=== PATIENT | male | born 1965 | race Caucasian/White ===

== ENCOUNTER 2017-10-25 15:51 | Observation (INO) | payer OTHER ==
[~2017-10-25] VITALS: Ht 177.8 cm; Wt 89.4 kg
[2017-10-25 16:25] LABS: ABSOLUTE BASOPHIL COUNT 0 /CUMM (0.0-0.2); ABSOLUTE EOSINOPHIL COUNT 0.1 /CUMM (0.0-0.7); ABSOLUTE GRANULOCYTE CT 4.6 /CUMM (1.4-6.5); ABSOLUTE LYMPH COUNT 1.7 /CUMM (1.2-3.4); ABSOLUTE MONOCYTE COUNT 0.5 /CUMM (0.10-0.60); BASOPHIL % 0.7 % (0.0-2.0); EOSINOPHIL % 1.4 % (0-5); GRANULOCYTE % 66.2 % (42.2-75.2); HEMATOCRIT 47.2 % (42-52); MEAN CORPUSCULAR HGB CONC 33.5 G/DL (33.0-37.0); MEAN CORPUSCULAR VOLUME 86.7 FL (80.0-94.0); MEAN PLATELET VOLUME 7.6 FL (7.4-10.4); PLATELET COUNT 247 /CUMM (130-400); RBC DISTRIBUTION WIDTH 13.6 % (11.5-14.5); RED BLOOD CELL CT 5.45 /CUMM (4.70-6.10)
--- NOTE | 2017-10-25 17:26 | RADIOLOGY REPORT ---
EXAMINATION: XR CHEST CLINICAL INFORMATION: Chest pain COMPARISON: None TECHNIQUE: 2 views of the chest were obtained. FINDINGS: No significant abnormality is noted involving the heart, lungs, mediastinum, bony thorax or soft tissues. IMPRESSION: Unremarkable examination.
[2017-10-25] MEDS ORDERED: HYDROCODON-ACE1 EAC6 PO (17:40)
[2017-10-25] MEDS ORDERED: CYCLOBENZAPRINE10 M1 PO (17:40)
[2017-10-25] MEDS ORDERED: GRALISE600 M2 PO (17:41)
--- NOTE | 2017-10-25 17:55 | ED CARDIAC/CP/PALPITATIONS ---
History of Present Illness General Chief Complaint: Chest Pain Stated Complaint: CP Source: patient Exam Limitations: no limitations Vital Signs & Intake/Output Vital Signs & Intake/Output Vital Signs Date Time Temp Pulse Resp B/P B/P Pulse O2 O2 Flow FiO2 Mean Ox Delivery Rate 10/25 1818 98.0 78 18 135/89 98 Room Air 10/25 1703 98 Room Air 10/25 1613 96.5 72 18 148/85 97 Room Air Allergies Coded Allergies: peanut (Severe, ANAPHYLAXIS 10/25/17) Triage Note: PT TO ER C/C INTERMITTENT CHEST PAIN AND EXERTIONAL SOB X 2 WEEKS. PAIN RELIEVED AT REST. FAMILY HX OF NV AT YOUNG AGE (MOTHER @ 47). DENIES KNOWN MEDICAL HX OF HTN, HYPERLIPIDEMIA Triage Nurses Notes Reviewed? yes Onset: Last week Duration: day(s): Timing: multiple episodes today Quality/Severity: mild, dull, pressure Location: central Radiation: neck, arms Activities at Onset: activity Modifying Factors: Worsens With: exercise. HPI: PATIENT IS A 52 Y/O MALE, PMH OF MIGRAINES, CHRONIC MUSCLE PAIN AND CHRONIC NERVE PAIN PRESENT FOR A ONE WEEK HISTORY OF CHEST PRESSURE AND SOB. PATIENT STATES HE HAS BEEN GETTING MORE OUT OF BREATH RECENTLY WITH MINOR EXERCISE AND NOW HAS A PRESSURE SENSATION OVER HIS CHEST WITH PAIN RADIATION TO HIS LEFT ARM. HE RATES THE PAIN AT A 5/10 AND IT COMES AND GOES THROUGHOUT THE DAY. HE REPORTS MULTIPLE EPISODES OF PALPITATIONS AND CAROTID PULSATIONS. HE ADDITIONALY REPORTS BILATERAL OCCIPTAL HEADACHE THAT IS DIFFERENT FROM HIS NORMAL MIGRAINES. HE DENIES, FEVER, CHILLS, N/V/D, DIZZINESS, ABDOMINAL PAIN, AND DYSURIA.the shortness of breath is worse with exertion and better with rest. (Isreal ALAS,Jesus) Reconcile Medications Aspirin (Aspirin*) 81 MG TAB.CHEW 1 TAB PO DAILY cardiac Atorvastatin Calcium 40 MG TABLET 1 TAB PO DAILY cholesterol Clopidogrel Bisulfate (Clopidogrel) 75 MG TABLET 1 TAB PO DAILY cardiac Cyclobenzaprine HCl 10 MG TABLET 1 TAB PO BID MUSCLE SPASMS (Reported) Gabapentin (Gralise) 600 MG TAB.ER.24H 1 TAB PO BID NEUROPATHY (Reported) Hydrocodone/Acetaminophen (Hydrocodon-Acetaminoph 7.5-300) 7.5 MG-300 MG TABLET 1 TAB PO BID PRN PAIN (Reported) Metoprolol Tartrate 25 MG TABLET 1 TAB PO BID cardiac (Claire HEARD,Jermaine Stacy) Past History Travel History Traveled to [place] past 21 day No Medical History Any Pertinent Medical History? see below for history Neurological: peripheral neuropathy, HEADACHES Surgical History Surgical History: none Psychosocial History What is your primary language [place] Tobacco Use: Quit >30 days ago Family History Comment: MOTHER WITH MULTIPLE NV's STARTING IN MID FORTIES. FATHER- BLADDER AND COLON CANCER Mother has history of hypertrophic cardiomyopathy Hx Contributory? Yes (Jesus Kwong) Review of Systems Review of Systems Constitutional: Reports: no symptoms. EENTM: Reports: no symptoms. Respiratory: Reports: no symptoms. Cardiovascular: Reports: see HPI. GI: Reports: no symptoms. Genitourinary: Reports: no symptoms. Musculoskeletal: Reports: see HPI. Skin: Reports: no symptoms. Neurological/Psychological: Reports: no symptoms. Hematologic/Endocrine: Reports: no symptoms. Immunologic/Allergic: Reports: no symptoms. All Other Systems: Reviewed and Negative (Jesus Kwong) Physical Exam Physical Exam General Appearance: well developed/nourished, no apparent distress, alert, awake , comfortable Head: atraumatic, normal appearance Eyes: Bilateral: normal appearance, EOMI. Ears, Nose, Throat: normal ENT inspection Neck: normal inspection, supple Respiratory: normal breath sounds, chest non-tender, no respiratory distress, lungs clear Cardiovascular: regular rate/rhythm Peripheral Pulses: 2+ radial (R), 2+ radial (L), 2+ tibialis posterior (R), 2+ tibialis posterior ( L), 2+ dorsalis pedis (R), 2+ dorsalis pedis (L) Gastrointestinal: normal bowel sounds, soft, non-tender, no organomegaly Extremities: normal inspection, no edema Skin: intact, normal color, warm/dry Core Measures ACS in differential dx? Yes CVA/TIA Diagnosis No Sepsis Present: No Sepsis Focused Exam Completed? No (Jesus Kwong) Progress Differential Diagnosis: AMI, aortic dissection, cholecystitis, musculoskeletal pain, myocarditis, pancreatitis, pericarditis, pneumonia, pneumothorax, pulmonary embolism, PUD/GERD, respiratory failure, sepsis, unstable angina Plan of Care: Orders Procedure Date/time Status Heart Healthy Diet 10/26 B Active CBC WITHOUT DIFFERENTIAL 10/26 599 Active BASIC ELECTROLYTES PLUS BUN&CR 10/26 599 Active TROPONIN LEVEL 10/26 0400 Active EKG 10/26 0400 Active Regular Diet 10/25 D Complete TROPONIN LEVEL 10/25 2200 Active EKG 10/25 2200 Active THYROID STIMULATING HORMONE 10/25 1841 Active LIPID PANEL 10/25 1841 Active GLYCOSYLATED HGB 10/25 1841 Active FREE T4 10/25 1841 Active Pathway - chart 10/25 1837 Active Pathway - chart 10/25 1835 Active House Staff 10/25 1835 Active Patient Data 10/25 1835 Active Code Status 10/25 1835 Active Patient Data 10/25 1831 Active Misc Message 10/25 1828 Active ED Holding Orders 10/25 1828 Active Vital Signs 10/25 1828 Active Code Status 10/[address] in observation 10/25 1826 Active Intake & Output 10/25 1702 Active Add-on Test (ER Only) 10/25 1635 Active Telemetry/Voip Technician 10/25 1635 Active D-DIMER 10/25 1610 Complete TROPONIN LEVEL 10/25 1609 Complete MAGNESIUM 10/25 1609 Complete COMPREHENSIVE METABOLIC PANEL 10/25 1609 Complete CBC WITHOUT DIFFERENTIAL 10/25 1609 Complete EKG 10/25 1551 Active VTE Mechanical Prophylaxis 10/25 UNK Active Vital Signs 10/25 UNK Active Telemetry/Voip Technician 10/25 UNK Active ECHOCARDIOGRAM 10/25 UNK Active Current Medications Sig/Lou Start time Last Medication Dose Stop Time Status Admin Aspirin 81 MG DAILY 10/26 1000 UNVr (Aspirin) Clopidogrel Bisulfate 75 MG DAILY 10/26 1000 UNVr (Plavix) Enoxaparin Sodium 40 MG DAILY 10/26 1000 CAN (Lovenox) Cyclobenzaprine HCl 10 MG BID 10/25 2199 AC (Flexeril 10MG Tab) Gabapentin 600 MG BID 10/25 2199 AC (Neurontin) Metoprolol Tartrate 12.5 MG BID 10/25 2199 UNVr (Lopressor) Aspirin 325 MG ONCE ONE 10/25 1914 UNVr (Aspirin) 10/25 1915 Atorvastatin Calcium 80 MG 1700 10/25 1914 UNVr (Lipitor) Clopidogrel Bisulfate 300 MG ONCE ONE 10/25 1914 UNVr (Plavix) 10/25 1915 Heparin Sodium 25,000 UNIT Q24H 10/25 1914 AC (Porcine) (Heparin) Sodium Chloride 500 ML Nitroglycerin 1 GM Q6 01/07 1911 UNVr (Nitro-Bid) Acetaminophen 650 MG Q6P PRN 10/25 1844 AC (Tylenol) Hydrocodone Bitart/ 1 TAB Q8P PRN 10/25 184 AC Acetaminophen (Vicodin) Ibuprofen 600 MG Q6P PRN 10/25 184 AC (Motrin) Laboratory Tests 10/25/17 1610: Anion Gap 13, Estimated GFR > 60, BUN/Creatinine Ratio 15.0, Glucose 96, Calcium 9.5, Magnesium 2.2, Total Bilirubin 0.5, AST 36, ALT 68, Alkaline Phosphatase 71 , Troponin I < 0.01, Total Protein 7.5, Albumin 4.6, Globulin 2.9, Albumin/ Globulin Ratio 1.6, D-Dimer High Sensitivty < 200, CBC w Diff NO MAN DIFF REQ, RBC 5.45, MCV 86.7, MCH 29.0, RDW 13.6, MPV 7.6, Gran % 66.2, Lymphocytes % 25.1 , Monocytes % 6.6, Eosinophils % 1.4, Basophils % 0.7, Absolute Granulocytes 4.6 , Absolute Lymphocytes 1.7, Absolute Monocytes 0.5, Absolute Eosinophils 0.1, Absolute Basophils 0, PUBS MCHC 33.5 Diagnostic Imaging: Viewed by Me: Radiology Read. Discussed w/RAD: Radiology Read. Radiology Impression: PATIENT: JACOB RICHEY PRESENT AGE: 52 PATIENT ACCOUNT NO: [id number] : 64 LOCATION: [facility] ORDERING PHYSICIAN: Jesus ALAS SERVICE DATE: 10/25/17 EXAM TYPE : RAD - XRY-CHEST XRAY, TWO VIEWS EXAMINATION: XR CHEST CLINICAL INFORMATION: Chest pain COMPARISON: None TECHNIQUE: 2 views of the chest were obtained. FINDINGS: No significant abnormality is noted involving the heart, lungs, mediastinum, bony thorax or soft tissues. IMPRESSION: Unremarkable examination. DICTATED BY: Wyatt Robertson MD DATE/TIME DICTATED:10/25/171721 LIFE CARE PLANNER :BC DATE/TIME TRANSCRIBED:10/25/171721 CONFIDENTIAL, DO NOT COPY WITHOUT APPROPRIATE AUTHORIZATION. <Electronically signed in Other Vendor System> SIGNED BY: Wyatt Robertson MD 10/25/171725 Initial ED EKG: normal sinus rhythm, rate (72), borderline T-wave abnormalities (Jesus Kwong) Departure Departure Disposition: STILL A PATIENT Condition: Stable Clinical Impression Primary Impression: Unstable angina Referrals: Patient Has No Primary Care Dr (PCP/Family) Departure Forms: Customer Survey General Discharge Information Observation Note Spoke With: Ailyn HEARD PHD,Piyush Townsend Physician Advisor Notified: JERMAINE KIRAN DO Place Patient In: Non-ED OBS Care Area Rationale for Observation: My rational for observation is as follows . Patient will require cardiac telemetry. Cardiac consultation. Serial troponins. Patient will require echocardiogram. Nonstress test. High risk. Medically not safe for discharge at this time. (Jesus Kwong) Departure Prescriptions: Current Visit Scripts Clopidogrel Bisulfate (Clopidogrel) 1 TAB PO DAILY #30 TAB Aspirin (Aspirin*) 1 TAB PO DAILY #30 TAB Metoprolol Tartrate 1 TAB PO BID #60 TAB Atorvastatin Calcium 1 TAB PO DAILY #30 TAB PA/SHERIFF SERGEANT Co-Sign Statement Statement: ED Attending supervision documentation- [X] I saw and evaluated the patient. I have also reviewed all the pertinent lab results and diagnostic results. I agree with the findings and the plan of care as documented in the PA's/SHERIFF SERGEANT's documentation. Patient presents for evaluation of worsening dyspnea, physical examination is unremarkable. [] I have reviewed the ED Record and agree with the PA's/SHERIFF SERGEANT's documentation. [] Additions or exceptions (if any) to the PAs/SHERIFF SERGEANT's note and plan are summarized below: [] (Claire HEARD,Jermaine Stacy) Critical Care Note Critical Care Note Critical Care Time: non-applicable (Jesus Kwong)
--- NOTE | 2017-10-25 18:59 | History & Physical ---
Nemesio HEARDKacy 10/25/17 1843: General Information and [facility] MD Statement: I have seen and personally examined JACOB RICHEY and documented this H&P. The patient is a 52 year old M who presented with a patient stated chief complaint of chest pain on exertion and shortness of breath Source of Information: patient Exam Limitations: no limitations History of Present Illness: Patient is a 52-year-old male with a past medical history significant for migraines, chronic muscle pain, nerve pain, past smoker that comes to see us for a 2 week history of intermittent and exertional shortness of breath and chest pain. The pain is located in the left chest and radiates to the neck and left arm. The patient denies any pain at rest. The patient notes the pain is more like a tightness in the left arm but the pain with a rating of 5/10 in the chest. He notes that happens on exertion. Sometimes it happens his shortness of breath and sometimes shortness of breath happens without the chest pain. The patient also admits to palpitations especially at night with carotid pulsations on the left side of his neck that wake him up out of sleep. He also notes an excruciating bilateral occipital headache 2 weeks ago with a few headaches since that he's taken Motrin as well as his prescribed Vicodin, Flexeril for. The patient denies any focal neuro deficits, loss of consciousness, seizure activity , aura, chills, nausea vomiting diarrhea, fever, chills, abdominal pain, dysuria. The patient does admit to some fleeting dizziness upon waking up one day. The patient has a family history of hypertrophic cardiomyopathy with his mother having several myocardial infarctions before the age of 47. Several of the patient's brothers and sisters have been tested for hypertrophic cardiomyopathy and has been negative. 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 The patient does not see a senior tax manager and sees a neurologist at [facility] neurology as migraines. He takes Flexeril, Vicodin, Motrin, and gabapentin for his muscle/nerve pains. Patient is a previous smoker but quit 27 years ago, no drug use, rare alcohol use. The patient is allergic to peanuts. Allergies/Medications Allergies: Coded Allergies: peanut (Severe, ANAPHYLAXIS 10/25/17) Home Med list Cyclobenzaprine HCl 10 MG TABLET 1 TAB PO BID MUSCLE SPASMS (Reported) Gabapentin (Gralise) 600 MG TAB.ER.24H 1 TAB PO BID NEUROPATHY (Reported) Hydrocodone/Acetaminophen (Hydrocodon-Acetaminoph 7.5-300) 7.5 MG-300 MG TABLET 1 TAB PO BID PRN PAIN (Reported) Compliance With Home Meds: GOOD Past History Travel History Traveled to [place] past 21 day No Medical History Neurological: peripheral neuropathy, HEADACHES Surgical History Surgical History: none Past Family/Social History Family History Relations & Conditions if any MOTHER Relation not specified for: Hypertrophic cardiomyopathy Review of Systems Review of Systems Constitutional: Reports: no symptoms. Cardiovascular: Reports: chest pain, palpitations. Respiratory: Reports: short of breath. GI: Reports: no symptoms. Genitourinary: Denies: no symptoms. Musculoskeletal: Reports: muscle pain. Neurological/Psychological: Reports: headache. Exam & Diagnostic Data Last 24 Hrs of Vital Signs/I&O Vital Signs Date Time Temp Pulse Resp B/P B/P Pulse O2 O2 Flow FiO2 Mean Ox Delivery Rate 10/25 1818 98.0 78 18 135/89 98 Room Air 10/25 1703 98 Room Air 10/25 1613 96.5 72 18 148/85 97 Room Air Physical Exam General Appearance Alert, Oriented X3, Cooperative, No Acute Distress HEENT Atraumatic, PERRLA, EOMI Cardiovascular Regular Rate, Normal S1, Normal S2, No Murmurs Lungs Clear to Auscultation, Normal Air Movement Abdomen Normal Bowel Sounds, Soft, No Tenderness Neurological Normal Speech Extremities No Clubbing, No Cyanosis, No Edema, Normal Pulses Vascular Normal Pulses, Pulses Symmetrical Last 24 Hrs of Labs/[place]: Laboratory Tests 10/25/17 1610: Anion Gap 13, Estimated GFR > 60, BUN/Creatinine Ratio 15.0, Glucose 96, Calcium 9.5, Magnesium 2.2, Total Bilirubin 0.5, AST 36, ALT 68, Alkaline Phosphatase 71 , Troponin I < 0.01, Total Protein 7.5, Albumin 4.6, Globulin 2.9, Albumin/ Globulin Ratio 1.6, D-Dimer High Sensitivty < 200, CBC w Diff NO MAN DIFF REQ, RBC 5.45, MCV 86.7, MCH 29.0, RDW 13.6, MPV 7.6, Gran % 66.2, Lymphocytes % 25.1 , Monocytes % 6.6, Eosinophils % 1.4, Basophils % 0.7, Absolute Granulocytes 4.6 , Absolute Lymphocytes 1.7, Absolute Monocytes 0.5, Absolute Eosinophils 0.1, Absolute Basophils 0, PUBS MCHC 33.5 Assessment/Plan Assessment: Patient is a 52-year-old male with a past medical history significant for migraines, chronic muscle pain, nerve pain, past smoker that comes to see us for a 2 week history of intermittent and exertional shortness of breath and chest pain, and excruciating bilateral occipital headache 2 weeks ago. He has a strong family history of heart problems with his mother having hypertrophic cardiomyopathy and several myocardial infarctions before the age of 47. The patient states that his chest pain radiates to his left arm and he also experiences palpitations and "carotid pulsations" that have woken him up during the night. The patient has not experienced these symptoms before. In the emergency department, the patient's vitals were temperature 96.5, heart rate 72, respirations 18, blood pressure 148/85. WBCs were normal at 7, hemoglobin 15.8, sodium 143, potassium 4.2, creatinine 0.8, d-dimer normal, troponins negative, chest x-ray negative for any acute process. Physical exam was normal. EKG showed normal sinus rhythm at a rate of 72 with QTC of 408. At the time of interview the patient was not experiencing any shortness of breath or chest pain. We will observe the patient in telemetry for evaluation and treatment of presumed ACS. Plan Serial troponins and EKGs- 10 PM and 4 AM Nitroglycerin 1 inch paste every 6 hours as needed for chest pain Aspirin 324 Heparin drip Plavix 300 mg today and 75 mg per day thereafter Metoprolol 12.5 for heart rate control Echocardiogram ordered for tomorrow Atorvastatin 80 mg daily Oxygen as needed We have started all of the patient's outpatient medications including Flexeril, Vicodin, Motrin, gabapentin As Ranked By This Provider Problem List: 1. Chest pain 2. Headache Core Measures/Misc (07/05) Acute Coronary Syndrome ACS Diagnosis: Yes Congestive Heart Failure Congestive Heart Failure Diagnosis No Cerebrovascular Accident CVA/TIA Diagnosis: No VTE (View Protocol) VTE Risk Factors Age>40 No Mechanical VTE Prophylaxis d/t N/A MechProphylax Ordered No VTE Pharm Prophylaxis d/t NA PharmProphylax ordered Sepsis (View protocol) Sepsis Present: No Annapureddy,Giovanny 10/25/17 1859: Resident Review Statement Resident Statement: examined this patient, discussed with recruitment internship, agreed with recruitment internship, discussed with family, reviewed EMR data (avail), discussed with nursing , discussed with case mgmt, reviewed images, amended to note Other Findings: This is a 52-year-old male with past medical history significant for migraine, muscle spasms, neuropathy, remote history of smoking, family history of heart attack mother when she was 47, presented for evaluation of chest pain. Patient reports on and off chest pains for past 2 weeks. Patient reports chest pain, left-sided, radiating to arm, pressured sensation, decreased with rest, increased with exertion. Associated with shortness of breath, not associated with any kind of activity. His chest pain has been on and off for past 2 weeks. No prior history of chest pain. Denies any palpitations, sweating, diaphoresis , nausea, vomiting. Denies any history of hypertension, hyperlipidemia. However has remote history of smoking 27 years back. Patient has strong family history of myocardial infarction, mother was diagnosed with IA when she was 45. All his family members and siblings were tested for hypertrophic cardiomyopathy. He is supposed to get his testing soon. Review of systems was negative except for above. Denies any smoking, alcohol abuse, illicit drug abuse. He follows up with neurologist at [facility] for migraines. Vitals afebrile, heart rate 72, respiratory rate 18, blood pressure 148/85, saturating at 97 on room air. Physical exam findings HEENT within normal limits , no JVD, S1-S2 normal, no murmurs, bilateral lung air entry good. Abdomen soft nontender nondistended, lower extremity no edema no cyanosis no clubbing. Neurologic exam intact. Labs C BC, BEP within normal limits Troponin normal D-dimer less than 200 Chest x-ray normal EKG rate 72, sinus rhythm, regular, no ST-T wave changes suggestive of ischemia. Assessment and plan 1. Chest pain Patient presented with chest pain suggestive of stable angina. Reports chest pain on and off, decreased with rest, increased with exertion, associated with shortness of breath, radiates to arm. He has remote history of smoking and family history of IA at young age. All his siblings were tested for cardiomyopathy. He is going to be placed in observation in the telemetry floor to rule out ACS Place under observation status in telemetry floor Continuous telemetry monitoring Serial troponin and EKG Cardiology consult Aspirin 325 once and aspirin 81 daily Plavix 300 mg loading dose now and 75 mg daily High-dose statin 80 daily Metoprolol 12.5 twice daily Nitroglycerin IV heparin drip follow-up thyroid function tests follow-up lipid profile and HbA1c Ruling out ACS Muscle spasms continue Flexeril Migraines continue gabapentin, Motrin, Vicodin Full code DVT prophylaxis subcutaneous Lovenox Regular diet
[2017-10-25 19:45] LABS: PTT 30 SEC (25-37)
[2017-10-26] VITALS (8 sets, daily range): BP systolic 109–148; BP diastolic 56–80
[2017-10-26 02:15] LABS: PTT 67 SEC (25-37)
[2017-10-26 08:06] LABS: ABSOLUTE BASOPHIL COUNT 0 /CUMM (0.0-0.2); ABSOLUTE EOSINOPHIL COUNT 0.1 /CUMM (0.0-0.7); ABSOLUTE LYMPH COUNT 2.8 /CUMM (1.2-3.4); ABSOLUTE MONOCYTE COUNT 0.4 /CUMM (0.10-0.60); BASOPHIL % 0.4 % (0.0-2.0); EOSINOPHIL % 1.9 % (0-5); GRANULOCYTE % 47.6 % (42.2-75.2); HEMATOCRIT 44.4 % (42-52); MEAN CORPUSCULAR HGB 29.3 PG (27.0-31.0); MEAN CORPUSCULAR HGB CONC 33.6 G/DL (33.0-37.0); MEAN CORPUSCULAR VOLUME 87.1 FL (80.0-94.0); MEAN PLATELET VOLUME 8.1 FL (7.4-10.4); PLATELET COUNT 223 /CUMM (130-400); RBC DISTRIBUTION WIDTH 13.9 % (11.5-14.5); RED BLOOD CELL CT 5.09 /CUMM (4.70-6.10); WHITE BLOOD CELL COUNT 6.4 /CUMM (4.8-10.8)
--- NOTE | 2017-10-26 10:21 | PN-Observation ---
Observation Note Observation Note _ I have personally examined JACOB RICHEY. him disposition is uncertain at this time. Before a determination can be made, he requires continued observation for the following reasons chest pain and SOB, rule out ACS Assessment/Plan Assessment: Assessment: Patient is a 52-year-old male with a past medical history significant for migraines, chronic muscle pain, nerve pain, past smoker that comes to see us for a 2 week history of intermittent and exertional shortness of breath and chest pain, and excruciating bilateral occipital headache 2 weeks ago. He has a strong family history of heart problems with his mother having hypertrophic cardiomyopathy and several myocardial infarctions before the age of 47. The patient states that his chest pain radiates to his left arm and he also experiences palpitations and "carotid pulsations" that have woken him up during the night. The patient has not experienced these symptoms before. In the emergency department, the patient's vitals were temperature 96.5, heart rate 72, respirations 18, blood pressure 148/85. WBCs were normal at 7, hemoglobin 15.8, sodium 143, potassium 4.2, creatinine 0.8, d-dimer normal, troponins negative, chest x-ray negative for any acute process. Physical exam was normal. EKG showed normal sinus rhythm at a rate of 72 with QTC of 408. At the time of interview the patient was not experiencing any shortness of breath or chest pain. We are observing the patient in telemetry for evaluation and treatment of presumed ACS. Troponins and EKGs negative. Guaic negative. Patient continues on heparin today. Plan RULE OUT ACS Nitroglycerin 1 inch paste every 6 hours as needed for chest pain Aspirin 324 Heparin drip Plavix 75 mg Metoprolol 12.5 for heart rate control Echocardiogram pending Atorvastatin 80 mg daily Oxygen as needed We have started all of the patient's outpatient medications including Flexeril, Vicodin, Motrin, gabapentin. ELEVATED CHOLESTEROL NOT Fasting Patient should have fasting lipid panel outpatient We have started him on atorvastatin and he should continue statin outpatient. FULL CODE NORMAL DIET PHARMACOLOGICAL DVT PROPHYLAXIS Problem List: 1. Headache 2. Chest pain DVT/Prophylaxis: pharmacological Subjective Follow-up For: chest pain rule out ACS Subjective: Overnight patient feels fine, no complaints. Review of Systems Constitutional: Reports: no symptoms. EENTM: Reports: no symptoms. Cardiovascular: Reports: see HPI. Denies: chest pain, edema, orthopena, palpitations. Respiratory: Reports: see HPI. Denies: short of breath. Gastrointestinal: Denies: abdominal pain, constipation, diarrhea. Musculoskeletal: Reports: back pain, muscle pain. Skin: Reports: no symptoms. Neurological/Psychological: Reports: no symptoms. Denies: headache. Objective Last 24 Hrs of Vital Signs/I&O Vital Signs Date Time Temp Pulse Resp B/P B/P Pulse O2 O2 Flow FiO2 Mean Ox Delivery Rate 10/26 922 98.7 85 18 112/76 10/26 0902 98.7 85 18 112/76 98 Room Air 10/26 0901 98.7 85 18 112/76 98 Room Air 10/26 0607 79 16 109/56 98 Room Air 10/26 0605 97.4 79 16 109/56 98 Room Air 10/26 0028 97.9 81 16 112/56 96 Room Air 10/25 2252 97.9 81 16 112/56 96 Room Air 10/25 2146 98.0 76 16 118/60 97 Room Air 10/25 2012 73 16 130/78 97 Room Air 10/25 1818 98.0 78 18 135/89 98 Room Air 10/25 1703 98 Room Air 10/25 1613 96.5 72 18 148/85 97 Room Air Intake & Output 10/26 1600 10/26 0800 10/26 0000 Intake Total 100 Output Total Balance 100 Intake, Oral 100 Patient 197 lb 197 lb Weight Weight Standing Scale Measurement Method Physical Exam General Appearance: Alert, Oriented X3, Cooperative, No Acute Distress Neck: Supple, No JVD Cardiovascular: Regular Rate, Normal S1, Normal S2, No Murmurs, Gallops Lungs: Clear to Auscultation, Normal Air Movement Abdomen: Normal Bowel Sounds, Soft, No Tenderness Extremities: No Edema Current Medications: Current Medications Sig/Lou Start time Last Medication Dose Route Stop Time Status Admin Acetaminophen 0 .STK-MED ONE 10/25 2152 DC PO Acetaminophen 650 MG Q6P PRN 10/25 184 AC 10/25 PO 2209 Aspirin 81 MG DAILY 10/26 1000 AC 10/26 PO 0923 Aspirin 0 .STK-MED ONE 10/26 0911 DC PO Aspirin 0 .STK-MED ONE 10/25 194 DC PO Aspirin 0 .STK-MED ONE 10/25 1924 DC PO Aspirin 325 MG ONCE ONE 10/25 1914 DC 10/25 PO 10/25 Aspirin 81 MG DAILY 10/25 1840 DC PO Atorvastatin Calcium 80 MG 1700 10/25 1914 AC 10/25 PO 194 Clopidogrel Bisulfate 75 MG DAILY 10/26 1000 AC 10/26 PO 0923 Clopidogrel Bisulfate 0 .STK-MED ONE 10/26 910 DC PO Clopidogrel Bisulfate 0 .STK-MED ONE 10/25 1941 DC PO Clopidogrel Bisulfate 300 MG ONCE ONE 10/25 1914 DC 10/25 PO 10/25 Cyclobenzaprine HCl 0 .STK-MED ONE 10/26 910 DC PO Cyclobenzaprine HCl 0 .STK-MED ONE 10/25 2249 DC PO Cyclobenzaprine HCl 10 MG BID 10/25 2199 AC 10/26 PO 23 Enoxaparin Sodium 40 MG DAILY 10/26 1000 CAN SC Gabapentin 0 .STK-MED ONE 10/26 912 DC PO Gabapentin 0 .STK-MED ONE 10/25 2249 DC PO Gabapentin 600 MG BID 10/25 2199 AC 10/26 PO 23 Heparin Sodium 25,000 UNIT Q24H 10/25 1914 AC 10/25 (Porcine) IV 2000 Sodium Chloride 500 ML Hydrocodone Bitart/ 0 .STK-MED ONE 10/26 10 DC Acetaminophen PO Hydrocodone Bitart/ 1 TAB Q8P PRN 10/25 1844 AC 10/26 Acetaminophen PO 0008 Ibuprofen 600 MG Q6P PRN 10/25 1844 AC PO Metoprolol Tartrate 0 .STK-MED ONE 10/26 910 DC PO Metoprolol Tartrate 12.5 MG BID 10/25 2199 AC 10/26 PO 23 Nitroglycerin 0 .STK-MED ONE 10/25 1941 SD TOP Nitroglycerin 1 GM Q6 10/25 1910 AC 10/25 TOP 1944 Last 24 Hrs of Labs/Mics: Laboratory Tests 10/26/17 06: Anion Gap 12, Estimated GFR > 60, BUN/Creatinine Ratio 17.1, CBC w Diff NO MAN DIFF REQ, RBC 5.09, MCV 87.1, MCH 29.3, RDW 13.9, MPV 8.1, Gran % 47.6, Lymphocytes % 43.2, Monocytes % 6.9, Eosinophils % 1.9, Basophils % 0.4, Absolute Granulocytes 3.0, Absolute Lymphocytes 2.8, Absolute Monocytes 0.4, Absolute Eosinophils 0.1, Absolute Basophils 0, PUBS MCHC 33.6 10/26/17 0346: Troponin I < 0.01 10/26/17 0152: APTT 67 H 10/25/17 2100: Hemoglobin A1c 5.8 10/25/17 2100: Troponin I < 0.01, Triglycerides 191 H, Cholesterol 210 H, LDL Cholesterol, Calc 117, HDL Cholesterol 55, Cholesterol/HDL Ratio 4, TSH 0.726, Free T4 1.05 10/25/17 1610: Anion Gap 13, Estimated GFR > 60, BUN/Creatinine Ratio 15.0, Glucose 96, Calcium 9.5, Magnesium 2.2, Total Bilirubin 0.5, AST 36, ALT 68, Alkaline Phosphatase 71 , Troponin I < 0.01, Total Protein 7.5, Albumin 4.6, Globulin 2.9, Albumin/ Globulin Ratio 1.6, PT 11.0, INR 1.05, APTT 30, D-Dimer High Sensitivty < 200, CBC w Diff NO MAN DIFF REQ, RBC 5.45, MCV 86.7, MCH 29.0, RDW 13.6, MPV 7.6, Gran % 66.2, Lymphocytes % 25.1, Monocytes % 6.6, Eosinophils % 1.4, Basophils % 0.7, Absolute Granulocytes 4.6, Absolute Lymphocytes 1.7, Absolute Monocytes 0.5 , Absolute Eosinophils 0.1, Absolute Basophils 0, PUBS MCHC 33.5
--- NOTE | 2017-10-26 10:41 | Cons- Cardiology ---
General Information and HPI Consulting Request Date of Consult: 10/26/17 Requested By: Ailyn HEARD PHD,Piyush Townsend History of Present Illness: Horace is a 52 year old male with history of hypertension and remote tobacco abuse. He also carries a family history of premature coronary artery disease in his mother and obstructive cardiomyopathy in his mother. Over the past few months this patient has noted a mild discomfort in his left chest described as a pulling sensation. He presented to the ER for evaluation of worsening left chest discomfort with associated paresthesia of the left arm. In addition, this patient has noted shortness of breath with minimal exertion. Some of his precordial discomfort is described as a fluttering sensation without any associated lightheadedness. He denies nausea or vomiting. There is no consistent exertional component to this discomfort but he also denies any relationship to eating or deep inspiration. The patient is a very difficult historian. Allergies/Medications Allergies: Coded Allergies: peanut (Severe, ANAPHYLAXIS 10/25/17) Home Med List: Cyclobenzaprine HCl 10 MG TABLET 1 TAB PO BID MUSCLE SPASMS (Reported) Gabapentin (Gralise) 600 MG TAB.ER.24H 1 TAB PO BID NEUROPATHY (Reported) Hydrocodone/Acetaminophen (Hydrocodon-Acetaminoph 7.5-300) 7.5 MG-300 MG TABLET 1 TAB PO BID PRN PAIN (Reported) Review of Systems Review of Systems: muscle achiness Past History Travel History Traveled to [place] past 21 day No Medical History Blood Transfusion Hx: No Neurological: peripheral neuropathy, HEADACHES Cardiovascular: NONE Respiratory: NONE Gastrointestinal: NONE Hepatic: NONE Renal: NONE Musculoskeletal: NONE Psychiatric: NONE Endocrine: NONE Cancer(s): NONE SECOND RIGGER/Reproductive: NONE Surgical History Surgical History: right inguinal hernia repair, right shoulder surgery Family History Relations & Conditions If Any: MOTHER Relation not specified for: Hypertrophic cardiomyopathy Psychosocial History Smoking Status: Former Smoker (quit 27 years ago) Exam & Diagnostic Data Vital Signs and I&O Vital Signs Date Time Temp Pulse Resp B/P B/P Pulse O2 O2 Flow FiO2 Mean Ox Delivery Rate 10/26 922 98.7 85 18 112/76 10/26 09 98.7 85 18 112/76 98 Room Air 10/26 0901 98.7 85 18 112/76 98 Room Air 10/26 0607 79 16 109/56 98 Room Air 10/26 0605 97.4 79 16 109/56 98 Room Air 10/26 0028 97.9 81 16 112/56 96 Room Air 10/25 2252 97.9 81 16 112/56 96 Room Air 10/25 2146 98.0 76 16 118/60 97 Room Air 10/25 2012 73 16 130/78 97 Room Air 10/25 1818 98.0 78 18 135/89 98 Room Air 10/25 1703 98 Room Air 10/25 1613 96.5 72 18 148/85 97 Room Air Intake & Output 10/26 1600 10/26 0000 10/25 1600 10/25 0000 Intake Total 100 Output Total Balance 100 Intake, Oral 100 Patient 197 lb 197 lb Weight Weight Standing Scale Measurement Method Physical Exam: General: WD/WN male in NAD; alert and oriented x 3 HEENT: NC/AT, PERRL, EOMI Neck: no JVD, no carotid bruit Heart: RRR w/o murmur Lungs: clear bilaterally Abdomen: soft, NT, +ve bowel sounds Extremities: no edema Diagnostic Data EKG Results sinus rhythm Assessment/Plan Assessment/Plan * This patient has symptoms consistent with unstable angina. There are no other obvious causes of his chest discomfort and his family history of premature CAD is very disconcerting. We will begin aspirin 324mg daily, IV heparin, Plavix 75mg daily. Begin NTG paste 1" Q 6 hours, Metoprolol 25mg BID and a statin. We will obtain three sets of cardiac enzymes to rule out for an [place]. If he remains comfortable and rules out then we will discharge tomorrow in anticipation for cardiac catheterization on Thursday. If he has positive enyzmes or recurrent chest pain then he will remain in the hospital and be transferred to the [facility] optical lab technician on Thursday. * I do not see clinical evidence of HOCM of physcial exam. Obtain an echocardiogram. Consult Acknowledgment - Thank you for your consult request.
[2017-10-26 14:49] LABS: PTT 58 SEC (25-37)
[2017-10-26 22:06] LABS: PTT 64 SEC (25-37)
[2017-10-27 06:15] VITALS: BP 98/62
--- NOTE | 2017-10-27 08:45 | ECHOCARDIOGRAM REPORT ---
JACOB RICHEY Age: 52 : 1965 Gender: M Exam Date: 10/26/2017 10:00 Exam Location: ER Ht (in): 70 Wt (lb): 192 BSA: 2.09 BP: 109 / 56 Ordering Physician: Jenn Tom MD Referring Physician: Jenn Tom MD Technologist: Roshan Ruiz RAUL Room Number: 2 Indications: CHEST PAIN Rhythm: Sinus Technical Quality: limited study FINDINGS Left Ventricle Normal left ventricular size, wall thickness and systolic function with no obvious regional wall motion abnormalities. Normal left ventricular diastolic filling pattern for age. The ejection fraction is visually estimated at 50%. Right Ventricle The right ventricle is normal in size and function. Right Atrium The right atrium is normal in size. Left Atrium The left atrium is normal in size. The interatrial septum is intact. Mitral Valve The mitral valve is normal in structure and function. There is no mitral regurgitation. Aortic Valve Structurally normal aortic valve without significant sclerosis or stenosis. There is no aortic regurgitation. Tricuspid Valve The tricuspid valve is normal in structure and function. There is no tricuspid regurgitation. Pulmonic Valve Structurally normal pulmonic valve. There is no pulmonic regurgitation. Pericardium Normal pericardium without effusion. No pleural effusion. Great Vessels Normal aortic root dimension. The aortic arch and great vessels are well seen and are normal. CONCLUSIONS 1. Low normal EF of 50%. 2. No valvular disease. Piyush Robertson M.D. (Electronically Signed) Final Date: 27 October 2017 08:44 MEASUREMENTS (Male / Female) Normal Values 2D ECHO LV Diastolic Diameter PLAX 5.0 cm 4.2 - 5.9 / 3.9 - 5.3 cm LV Systolic Diameter PLAX 3.2 cm 2.1 - 4.0 cm LV Fractional Shortening PLAX 36.8 % 25 - 46 % LV Ejection Fraction 2D Teich 66.4 % IVS Diastolic Thickness 1.0 cm LVPW Diastolic Thickness 1.0 cm LV Relative Wall Thickness 0.4 RV Internal Dim ED PLAX 2.9 cm 1.9 - 3.8 cm LVOT Diameter 2.0 cm Aortic Root Diameter 2.9 cm LA Systolic Diameter LX 3.1 cm 3.0 - 4.0 / 2.7 - 3.8 cm Ascending Aorta Diameter 2.8 cm IVC Diameter Expiration 1.8 cm DOPPLER AV Peak Velocity 133.0 cm/s AV Peak Gradient 7.1 mmHg AV Mean Velocity 92.3 cm/s AV Mean Gradient 4.0 mmHg AV Velocity Time Integral 26.5 cm LVOT Peak Velocity 106.1 cm/s LVOT Peak Gradient 4.5 mmHg LVOT Mean Velocity 70.7 cm/s LVOT Mean Gradient 2.4 mmHg LVOT Velocity Time Integral 20.8 cm LVOT Stroke Volume 67.3 cm AV Area Cont Eq vti 2.5 cm AV Area Cont Eq pk 2.6 cm MV Peak Velocity 74.7 cm/s MV Peak Gradient 2.2 mmHg MV Mean Velocity 46.0 cm/s MV Mean Gradient 1.0 mmHg Mitral E Point Velocity 69.1 cm/s Mitral A Point Velocity 60.2 cm/s Mitral E to A Ratio 1.1 MV PHT Velocity 85.5 cm/s MV Deceleration [place] 303.6 cm/s MV Pressure Half Time 84.5 ms MV Area PHT 2.6 cm MV Deceleration Time 281.7 ms PV Peak Velocity 103.2 cm/s PV Peak Gradient 4.3 mmHg PV Mean Velocity 69.4 cm/s PV Mean Gradient 2.3 mmHg PV Velocity Time Integral 24.3 cm MV E' Velocity 10.6 cm/s Mitral E to MV E' Ratio 6.5 LV E' Lateral Velocity 11.6 cm/s Mitral E to LV E' Lateral Ratio 6.0
[2017-10-27 08:55] VITALS: BP 100/70
[2017-10-27 08:59] VITALS: BP 100/70
--- NOTE | 2017-10-27 09:09 | PN-Observation ---
Observation Note Observation Note _ I have personally examined JACOB RICHEY. him disposition is uncertain at this time. Before a determination can be made, he requires continued observation for the following reasons chest pain and sob Assessment/Plan Assessment: Assessment: Patient is a 52-year-old male with a past medical history significant for migraines, chronic muscle pain, nerve pain, past smoker that comes to see us for a 2 week history of intermittent and exertional shortness of breath and chest pain, and excruciating bilateral occipital headache 2 weeks ago. He has a strong family history of heart problems with his mother having hypertrophic cardiomyopathy and several myocardial infarctions before the age of 47. The patient states that his chest pain radiates to his left arm and he also experiences palpitations and "carotid pulsations" that have woken him up during the night. The patient has not experienced these symptoms before. In the emergency department, the patient's vitals were temperature 96.5, heart rate 72, respirations 18, blood pressure 148/85. WBCs were normal at 7, hemoglobin 15.8, sodium 143, potassium 4.2, creatinine 0.8, d-dimer normal, troponins negative, chest x-ray negative for any acute process. Physical exam was normal. EKG showed normal sinus rhythm at a rate of 72 with QTC of 408. At the time of interview the patient was not experiencing any shortness of breath or chest pain. We are observing the patient in telemetry for evaluation and treatment of presumed ACS. Troponins and EKGs negative. Guaic negative. Patient continues on heparin today. Plan RULE OUT ACS Nitroglycerin 1 inch paste every 6 hours as needed for chest pain- would like to give nitropatch outpatient but patient refused as he said it caused headache when they applied paste in the ED yesterday. continue Aspirin 81 stop Heparin drip for discharge continue Plavix 75 mg continue Metoprolol 25mg bid for heart rate control outpatient Echocardiogram was normal, no evidence HCM Atorvastatin 40 mg daily Continue all outpatient medications including Flexeril, Vicodin, Motrin, gabapentin. ELEVATED CHOLESTEROL NOT Fasting Patient should have fasting lipid panel outpatient We have started him on atorvastatin and he should continue statin outpatient. PATIENT WILL HAVE CARDIAC CATH WITH DR. ADAME AT [facility] THURSDAY. HE WILL REFER PATIENT TO PCP PATIENT DOES NOT HAVE ONE. FULL CODE NORMAL DIET PHARMACOLOGICAL DVT PROPHYLAXIS Problem List: 1. Chest pain Subjective Review of Systems Constitutional: Reports: no symptoms. Cardiovascular: Denies: chest pain. Respiratory: Denies: short of breath. Objective Last 24 Hrs of Vital Signs/I&O Vital Signs Date Time Temp Pulse Resp B/P B/P Pulse O2 O2 Flow FiO2 Mean Ox Delivery Rate 10/27 0759 71 100/70 10/27 0855 71 100/70 10/27 0800 Room Air 10/27 0615 97.8 81 18 98/62 97 Room Air 10/26 2058 86 116/80 10/26 2044 97.7 81 16 112/72 93 Room Air 10/26 1840 Room Air 10/26 1838 97.7 90 18 148/80 97 Room Air 10/26 1535 98.6 67 18 111/58 97 Room Air 10/26 1525 98.6 67 18 111/58 97 Room Air Intake & Output 10/27 1600 10/27 0800 10/27 0000 Intake Total 885.2 428.8 798.0 Output Total Balance 885.2 428.8 798.0 Intake, IV 165.2 188.8 118.0 Intake, Oral 720 240 680 Physical Exam General Appearance: Alert, Oriented X3, Cooperative, No Acute Distress Cardiovascular: Regular Rate, Normal S1, Normal S2, No Murmurs
[2017-10-27 10:04] LABS: PTT 83 SEC (25-37)
--- NOTE | 2017-10-27 11:10 | Patient Discharge Instructions ---
Discharge Instructions General Discharge Information You were seen/treated for: chest pain/shortness of breath- persumed cardiac etiology Special Instructions: 1. please follow up with territory sales professional Dr. Robertson tomorrow for cardiac catheterization at [facility] tomorrow. 2. Dr. Robertson will refer primary care doctor. Please establish care within next 2 weeks. Diet Continue normal diet: Yes Activity Full Activity/No Limits: No Activity Self Limited: No Other activity limits: non strenuous activities until after cardiac catherization Acute Coronary Syndrome Inclusion Criteria At DC or during hospital stay patient has or had the following: ACS DIAGNOSIS No Discharge Core Measures Meds if any: Prescribed or Continued at Discharge Meds if any: NOT Prescribed or Continued at Discharge Congestive Heart Failure Inclusion Criteria At DC or during hospital stay patient has or had the following: CHF DIAGNOSIS No Discharge Core Measures Meds if any: Prescribed or Continued at Discharge Meds if any: NOT Prescribed or Continued at Discharge Cerebrovascular accident Inclusion Criteria At DC or during hospital stay patient has or had the following: CVA/TIA Diagnosis No Discharge Core Measures Meds if any: Prescribed or Continued at Discharge Meds if any: NOT Prescribed or Continued at Discharge Venous thromboembolism Inclusion Criteria VTE Diagnosis No VTE Type NONE VTE Confirmed by (Test) NONE Discharge Core Measures - Per Current guidelines, there needs to be overlap - treatment for the first 5 days of Warfarin therapy. - If discharged on Warfarin prior to 5 days of - overlap therapy, the patient will need to be - assessed for post discharge needs including - *Post discharge parental anticoagulation - *Warfarin and/or parental anticoagulation education - *Follow up date to check INR post discharge At least 5 days overlap therapy as Inpatient No Meds if any: Prescribed or Continued at Discharge Note: Overlap Therapy is Warfarin and Anticoagulant Meds if any: NOT Prescribed or Continued at Discharge
[2017-10-27] MEDS ORDERED: METOPROLOL TART25 M1 PO (11:12)
[2017-10-27] MEDS ORDERED: CLOPIDOGREL75 M1 PO (11:12)
[2017-10-27] MEDS ORDERED: ATORVASTATIN CA80 M1 PO (11:12)
[2017-10-27] MEDS ORDERED: ASPIRIN81 M4 PO (11:12)
[2017-10-27] MEDS ORDERED: NITROGLYCERIN0.4 M1 SL (11:12)
--- NOTE | 2017-10-27 13:56 | PN- Cardiology ---
Subjective Subjective: * No current chest discomfort. No shortness of breath. * Normal cardiac enzymes * sinus rhythm * Normal EF on echo without LVH Objective Vital Signs and I&Os Vital Signs Date Time Temp Pulse Resp B/P B/P Pulse O2 O2 Flow FiO2 Mean Ox Delivery Rate 10/27 0759 71 100/70 10/27 0855 71 100/70 10/27 0800 Room Air 10/27 0615 97.8 81 18 98/62 97 Room Air 10/26 2058 86 116/80 10/26 2044 97.7 81 16 112/72 93 Room Air 10/26 1840 Room Air 10/26 1838 97.7 90 18 148/80 97 Room Air 10/26 1535 98.6 67 18 111/58 97 Room Air 10/26 1525 98.6 67 18 111/58 97 Room Air Intake & Output 10/27 1600 10/27 0000 10/26 1600 10/26 0800 10/26 0000 Intake Total 428.8 798.0 100 Output Total Balance 428.8 798.0 100 Intake, IV 188.8 118.0 Intake, Oral 240 680 100 Patient 197 lb 197 lb Weight Weight Standing Scale Measurement Method Physical Exam: General: WD/WN male in NAD; alert and oriented x 3 HEENT: NC/AT, PERRL, EOMI Neck: no JVD, no carotid bruit Heart: RRR w/o murmur Lungs: clear bilaterally Abdomen: soft, NT, +ve bowel sounds Extremities: no edema Assessment/Plan Assessment/Plan * This patient had symptoms consistent with unstable angina. He is now improved on medical therapy and ruled out for an [place]. We will discharge this patient to home with a plan for outpatient cardiac catheterization tomorrow at Located within [facility]. Discharge on aspirin, Plavix, Atorvastatin and Metoprolol. T * The patient has a low normal EF with no regional wall motion abnormalities and no evidence of LVH of HOCM. Continue telemetry? Yes
[2017-10-27] MEDS ORDERED: ATORVASTATIN CA40 M1 PO (14:20)
== END 2017-10-27 14:05 ==
LOC: ERH 15:51 → ERHI 18:26 → ENRESERV 10-26 17:02 → ENTRNSPT 10-26 17:47 → 1NO 10-26 18:26 → CMPTRNSPT 10-26 18:30 → 1NO 10-27 11:03 → ENPENDDIS 10-27 12:35 → 1NO 10-27 14:05
PROVIDERS: Emergency Medicine; Hospitalist; Internal Medicine Interventional Cardiology; Physician Assistant Medical
DX: I20.0 Unstable angina (principal); R06.02 Shortness of breath; G43.909 Migraine, unspecified, not intractable, without status migrainosus; G89.29 Other chronic pain; M79.2 Neuralgia and neuritis, unspecified; Z87.891 Personal history of nicotine dependence; G62.9 Polyneuropathy, unspecified; M62.838 Other muscle spasm; Z79.899 Other long term (current) drug therapy; Z79.82 Long term (current) use of aspirin
CPT/HCPCS: 36415; 71046; 82436; 93005; 93010; 93306; 96374; 96376; 99291; G0378; J1644; J1650; J3490